=== PATIENT | male | born 2000 | race American Indian/Alaskan Native ===

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

== ENCOUNTER 2020-04-10 20:31 | Emergency (ER) | payer BC, OTHER ==
[2020-04-10 22:04] LABS: Hematocrit 50.6 % (35.5-45.6); Hemoglobin 17.7 gm/dl (11.8-15.2); Mean Corpuscular HGB Conc 35 % (32-34); Mean Corpuscular Volume 84 fl (84-94); Platelet Count 203 K/mm3 (140-440); Red Blood Count 6.02 M/mm3 (3.65-5.03); Red Cell Distribution Width 13.9 % (13.2-15.2)
[2020-04-10 22:11] LABS: Basophils % (Auto) 0.3 % (0.0-1.8); Eosinophils # (Auto) 0.2 K/mm3 (0.0-0.4); Lymphocytes # (Auto) 0.7 K/mm3 (1.2-5.4); Lymphocytes % (Auto) 5.7 % (13.4-35.0); Monocytes # (Auto) 1.1 K/mm3 (0.0-0.8); Monocytes % (Auto) 9.6 % (0.0-7.3)
[2020-04-10 22:25] LABS: Alanine Aminotransferase 13 units/L (7-56); BUN/Creatinine Ratio 12; Blood Urea Nitrogen 12 mg/dL (9-20); Calcium 10.6 mg/dL (8.4-10.2); Hemolysis Index 5
--- NOTE | 2020-04-10 22:31 | XRay Report ---
CHEST 2 VIEWS INDICATION: MAIN. Acute generalized chest pain with nausea and vomiting COMPARISON: None FINDINGS: SUPPORT DEVICES: None. HEART: Within normal limits. LUNGS/PLEURA: No acute air space or interstitial disease. No pneumothorax. ADDITIONAL FINDINGS: None. IMPRESSION: 1. No acute findings. Signer Name: Howard Hay MD Signed: 04/10/2020 10:27 PM Workstation Name: [email or web address]
--- NOTE | 2020-04-10 22:35 | Event Note ---
ED Screening Note ED Screening Note: n/v that began this morning 6-7 episodes no diarrhea LUQ abd pain no fever no sick contacts no recent travel no water different source no recent abx PMHx asthma no allergies to meds non smoker occ ETOH This initial assessment/diagnostic orders/clinical plan/treatment(s) is/are subject to change based on patients health status, clinical progression and re- assessment by fellow clinical providers in the ED. Further treatment and workup at subsequent clinical providers discretion. Patient/guardian urged not to elope from the ED as their condition may be serious if not clinically assessed and managed. Initial orders include: labs
[2020-04-11 00:41] LABS: Bilirubin,Urine NEG (Negative); Blood,Urine NEG (Negative); Color,Urine Yellow (Yellow); Mucus,Urine FEW /HPF; RBC,Urine < 1.0 /HPF (0.0-6.0)
[2020-04-11] MEDS ORDERED: ONDANSETRON 4 MG/2 ML INJ IV ONE (01:25)
[2020-04-11] MEDS ORDERED: MORPHINE 4 MG/1 ML INJ IV ONE (01:25)
[2020-04-11] MEDS ORDERED: SODIUM CHLORIDE 0.9% 1000 ML 1,000 ML IV ONE (01:25)
[2020-04-11] MEDS ORDERED: FAMOTIDINE 20 MG/2 ML INJ IV ONE (01:25)
--- NOTE | 2020-04-11 02:19 | Cat Scan Report ---
CT ABDOMEN AND PELVIS WITH CONTRAST HISTORY: Patient complains of abdominal pain with nausea and vomiting. Omnipaque 300 / 100ml's was us ed for this exam.. COMPARISON: None. TECHNIQUE: CT images of the abdomen and pelvis were obtained following administration of intravenous contrast. All CT scans at this location are performed using CT dose reduction for ALARA by means of automated exposure control. CONTRAST: 100 ml of intravenous contrast administered. FINDINGS: Lungs/bones: The lung bases are clear. There is no acute osseous abnormality. Abdomen/pelvis: The liver, gallbladder, spleen, pancreas, adrenals, left kidney, and proximal GI tra ct appear unremarkable. The right kidney is pelvic in location with no acute abnormality identified. Urinary bladder and prostate are normal with no pelvic free fluid or acute colonic abnormality. Moder ate colonic stool burden may be seen with constipation. The appendix is retrocecal and normal in appe arance. IMPRESSION: 1. No acute abnormality identified. 2. Incidental pelvic right kidney. Signer Name: Howard Hay MD Signed: 04/11/2020 2:14 AM Workstation Name: [id number]
--- NOTE | 2020-04-11 03:02 | Emergency Department Report ---
ED Abdominal Pain HPI - General Chief Complaint: Nausea/Vomiting/Diarrhea Stated Complaint: VOMITING Time Seen by Provider: 04/10/20 22:34 Source: patient Mode of arrival: Ambulatory Limitations: No Limitations - History of Present Illness Initial Comments: This is a 19-year-old male nontoxic, well nourished in appearance, no acute signs of distress presents to the ED with c/o of nausea and vomiting and abdominal pain several days. Patient describes vomiting as food content and yellow gastric acid. Patient describes abdominal pain as cramping and aching with level of 8/10 left upper abdominal area. Patient denies chest pain, short of breath, fever, hemoptysis, blood in stool, chills, headache, stiff neck, numbness or tingling. Patient denies any diarrhea or constipation. Denies any blood in stool. Patient denies any recent travels. Patient denies any allergies or significant PMH. MD Complaint: abdominal pain -: days(s) Location: LUQ Radiation: none Migration to: no migration Severity: mild Severity scale (0 -10): 8 Quality: cramping, aching Consistency: constant Improves With: nothing Worsens With: nothing Associated Symptoms: nausea, vomiting. denies: diarrhea, fever, chills, constipation, dysuria, hematemesis, hematochezia, melena, hematuria, anorexia, syncope - Related Data Previous Rx's Medication Instructions Recorded Last Taken Type Albuterol Mdi (or & Nicu Only) 2 puff IH QID PRN #1 inhalation 04/12/15 Unknown Rx [ProAir HFA Inhaler] Albuterol Sulfate [Albuterol 0.63% 0.63 mg IH TID PRN #1 box 04/12/15 Unknown Rx NEBS] Fluticasone/Salmeterol [Advair 1 puff IH BID #1 disk.w.dev 04/12/15 Unknown Rx Diskus 100-50 mcg] Prednisone [predniSONE (Izzy) ER 40 mg PO QDAY #5 tablet. 04/12/15 Unknown Rx TAB] Ondansetron [Zofran Odt] 4 mg PO Q8HR PRN #12 tab.rapdis 04/11/20 Unknown Rx Allergies Allergy/AdvReac Type Severity Reaction Status Date / Time No Known Allergies Allergy Verified 04/10/20 21:42 ED Review of Systems ROS: Stated complaint: VOMITING Other details as noted in HPI Constitutional: denies: chills, fever Eyes: denies: eye pain, eye discharge, vision change ENT: denies: ear pain, throat pain Respiratory: denies: cough, shortness of breath, wheezing Cardiovascular: denies: chest pain, palpitations Endocrine: no symptoms reported Gastrointestinal: abdominal pain, nausea. denies: diarrhea, constipation, hematemesis, melena, hematochezia Genitourinary: denies: urgency, dysuria Musculoskeletal: denies: back pain, joint swelling, arthralgia Skin: denies: rash, lesions Neurological: denies: headache, weakness, paresthesias Psychiatric: denies: anxiety, depression Hematological/Lymphatic: denies: easy bleeding, easy bruising ED Past Medical Hx - Past Medical History Previous Medical History?: Yes Hx Asthma: Yes - Surgical History Past Surgical History?: No - Social History Smoking Status: Never Smoker Substance Use Type: None - Medications Home Medications: Home Medications Medication Instructions Recorded Confirmed Last Taken Type Albuterol Mdi (or & Nicu Only) 2 puff IH QID PRN #1 inhalation 04/12/15 Unknown Rx [ProAir HFA Inhaler] Albuterol Sulfate [Albuterol 0.63% 0.63 mg IH TID PRN #1 box 04/12/15 Unknown Rx NEBS] Fluticasone/Salmeterol [Advair 1 puff IH BID #1 disk.w.dev 04/12/15 Unknown Rx Diskus 100-50 mcg] Prednisone [predniSONE (Izzy) ER 40 mg PO QDAY #5 tablet.dr 04/12/15 Unknown Rx TAB] Ondansetron [Zofran Odt] 4 mg PO Q8HR PRN #12 tab.rapdis 04/11/20 Unknown Rx ED Physical Exam - General Limitations: No Limitations General appearance: alert, in no apparent distress - Head Head exam: Present: atraumatic, normocephalic - Eye Eye exam: Present: normal appearance - Neck Neck exam: Present: normal inspection, full ROM. Absent: tenderness, meningismus, lymphadenopathy - Respiratory Respiratory exam: Present: normal lung sounds bilaterally. Absent: respiratory distress, wheezes, rales, rhonchi, stridor, chest wall tenderness, accessory muscle use, decreased breath sounds, prolonged expiratory - Cardiovascular Cardiovascular Exam: Present: regular rate, normal rhythm, normal heart sounds. Absent: irregular rhythm, systolic murmur, diastolic murmur, rubs, gallop - GI/Abdominal GI/Abdominal exam: Present: soft, tenderness (upper abdomen), normal bowel sounds. Absent: distended, guarding, rebound, rigid, diminished bowel sounds - Rectal Rectal exam: Present: deferred - Extremities Exam Extremities exam: Present: normal inspection, full ROM - Back Exam Back exam: Present: normal inspection, full ROM. Absent: tenderness, CVA tenderness (R), CVA tenderness (L), muscle spasm, paraspinal tenderness, vertebral tenderness, rash noted - Neurological Exam Neurological exam: Present: alert, oriented X3, normal gait - Psychiatric Psychiatric exam: Present: normal affect, normal mood - Skin Skin exam: Present: warm, dry, intact, normal color. Absent: rash ED Course Vital Signs 04/10/20 21:41 Temperature 99.5 F Pulse Rate 104 H Respiratory 18 Rate Blood Pressure 120/75 O2 Sat by Pulse 100 Oximetry - Reevaluation(s) Reevaluation #1: 04/11/20 03:01 Patient is speaking in full sentences with no signs of distress noted. ED Medical Decision Making - Lab Data Result diagrams: 04/10/20 21:53 04/10/20 21:53 Lab Results 04/10/20 04/10/20 04/11/20 Range/Units 21:53 21:53 Unknown WBC 11.3 H (4.5-11.0) K/mm3 RBC 6.02 H (3.65-5.03) M/mm3 Hgb 17.7 H (11.8-15.2) gm/dl Hct 50.6 H (35.5-45.6) % MCV 84 (84-94) fl MCH 29 (28-32) pg MCHC 35 H (32-34) % RDW 13.9 (13.2-15.2) % Plt Count 203 (140-440) K/mm3 Lymph % (Auto) 5.7 L (13.4-35.0) % Rice % (Auto) 9.6 H (0.0-7.3) % Eos % (Auto) 2.0 (0.0-4.3) % Baso % (Auto) 0.3 (0.0-1.8) % Lymph # (Auto) 0.7 L (1.2-5.4) K/mm3 Rice # (Auto) 1.1 H (0.0-0.8) K/mm3 Eos # (Auto) 0.2 (0.0-0.4) K/mm3 Baso # (Auto) 0.0 (0.0-0.1) K/mm3 Add Manual Diff Complete Seg Neutrophils % 82.4 H (40.0-70.0) % Seg Neutrophils # 9.8 H (1.8-7.7) K/mm3 Sodium 140 (137-145) mmol/L Potassium 4.9 (3.6-5.0) mmol/L Chloride 100.4 (98-107) mmol/L Carbon Dioxide 26 (22-30) mmol/L Anion Gap 19 mmol/L BUN 12 (9-20) mg/dL Creatinine 1.0 (0.8-1.3) mg/dL Estimated GFR > 60 ml/min BUN/Creatinine Ratio 12 % Glucose 93 (75-100) mg/dL Calcium 10.6 H (8.4-10.2) mg/dL Total Bilirubin 3.00 H (0.1-1.2) mg/dL AST 21 (5-40) units/L ALT 13 (7-56) units/L Alkaline Phosphatase 72 (35-129) units/L Total Protein 7.8 (6.3-8.2) g/dL Albumin 5.0 (3.9-5) g/dL Albumin/Globulin Ratio 1.8 % Lipase 21 (13-60) units/L Urine Color Yellow (Yellow) Urine Turbidity Clear (Clear) Urine pH 7.0 (5.0-7.0) Ur Specific Anderson 1.026 (1.003-1.030) Urine Protein 30 mg/dl (Negative) mg/dL Urine Glucose (UA) Neg (Negative) mg/dL Urine Ketones Neg (Negative) mg/dL Urine Blood Neg (Negative) Urine Nitrite Neg (Negative) Urine Bilirubin Neg (Negative) Urine Urobilinogen 4.0 (<2.0) mg/dL Ur Leukocyte Esterase Neg (Negative) Urine WBC (Auto) 1.0 (0.0-6.0) /HPF Urine RBC (Auto) < 1.0 (0.0-6.0) /HPF Urine Mucus Few /HPF - EKG Data 04/11/20 03:03 EKG done in triage. Normal sinus rhythm at 93 bpm. Reviewed and signed by . - Radiology Data Referring Physician: AVA JOVEL Patient Name: NEMESIO BROWN Date of : 2000 Sex: Male Report Date: 2020-04-11 Report Status: Finalized [facility] [address] [place] [address] Cat Scan Report Signed Patient: NEMESIO BROWN MR#: [id number] : 2000 Acct:[id number] Age/Sex: 19 / M ADM Date: 04/10/20 Loc: ED Attending Dr: Ordering Physician: AVA JOVEL NP Date of Service: 04/11/20 Procedure(s): CT abdomen pelvis w con Accession Number(s): [id number] cc: AVA JOVEL NP CT ABDOMEN AND PELVIS WITH CONTRAST HISTORY: Patient complains of abdominal pain with nausea and vomiting. Omnipaque 300 / 100ml's was used for this exam.. COMPARISON: None. TECHNIQUE: CT images of the abdomen and pelvis were obtained following administration of intravenous contrast. All CT scans at this location are performed using CT dose reduction for ALARA by means of automated exposure control. CONTRAST: 100 ml of intravenous contrast administered. FINDINGS: Lungs/bones: The lung bases are clear. There is no acute osseous abnormality. Abdomen/pelvis: The liver, gallbladder, spleen, pancreas, adrenals, left kidney, and proximal GI tract appear unremarkable. The right kidney is pelvic in location with no acute abnormality identified. Urinary bladder and prostate are normal with no pelvic free fluid or acute colonic abnormality. Moderate colonic stool burden may be seen with constipation. The appendix is retrocecal and normal in appearance. IMPRESSION: 1. No acute abnormality identified. 2. Incidental pelvic right kidney. Signer Name: Howard Hay MD Signed: 04/11/2020 2:14 AM Workstation Name: [id number] Transcribed By: MIRIAN Dictated By: Howard Hay MD Electronically Authenticated By: Howard Hay MD Signed Date/Time: 04/11/20213 DD/ 2 TD/TT: Referring Physician: ED DOC Patient Name: NEMESIO BROWN Date of : 2000 Sex: Male Report Date: 2020-04-10 Report Status: Finalized [facility] [address] [place] [address] XRay Report Signed Patient: NEMESIO BROWN MR#: [id number] : 2000 Acct:[id number] Age/Sex: 19 / M ADM Date: 04/10/20 Loc: ED Attending Dr: Ordering Physician: PALMA SPEARS MD Date of Service: 04/10/20 Procedure(s): XR chest routine 2V Accession Number(s): [id number] cc: PALMA SPEARS MD Fluoro Time In Minutes: CHEST 2 VIEWS INDICATION: MAIN. Acute generalized chest pain with nausea and vomiting COMPARISON: None FINDINGS: SUPPORT DEVICES: None. HEART: Within normal limits. LUNGS/PLEURA: No acute air space or interstitial disease. No pneumothorax. ADDITIONAL FINDINGS: None. IMPRESSION: 1. No acute findings. Signer Name: Howard Hay MD Signed: 04/10/2020 10:27 PM Workstation Name: [id number] Transcribed By: JW Dictated By: Howard aHy MD Electronically Authenticated By: Howard Hay MD Signed Date/Time: 04/10/202226 DD/ 25 TD/TT: - Medical Decision Making This is a 19-year-old male that presents with abdominal pain. Patient is stable and was examined by me. Negative signs of symptoms of appendicitis. Labs obtained. UA obtained. CT of abdomen obtained and dictated by the radiologist. Patient is notified of the report with no questions noted by the patient. Vital signs are stable prior to discharge. Patient received medical treatment in the ED which patient stated symptoms has resovled and subsided. Was instructed note to operate any machinery due to possible drowsiness and stated someone will driv e the patient home. A by mouth challenge has been obtained and patient tolerated well with no nausea vomiting. Patient was also instructed to Follow-up with a primary care doctor in 3-5 days or if symptoms worsen and continue return to emergency room as soon as possible. At time of discharge, the patient does not seem toxic or ill in appearance. No acute signs of distress noted. Patient agrees to discharge treatment plan of care. No further questions noted by the patient. - Differential Diagnosis SBO, gastritis, appendicitis, cholecystitis Critical care attestation.: If time is entered above; I have spent that time in minutes in the direct care of this critically ill patient, excluding procedure time. ED Disposition Clinical Impression: Abdominal pain Qualifiers: Abdominal location: upper abdomen, unspecified Qualified Code(s): R10.10 - Up per abdominal pain, unspecified Nausea & vomiting Qualifiers: Vomiting type: unspecified Vomiting Intractability: non-intractable Qualified Code(s): R11.2 - Nausea with vomiting, unspecified Disposition: - TO HOME OR SELFCARE Is pt being admited?: No Does the pt Need Aspirin: No Condition: Stable Instructions: Abdominal Pain, Adult, [id number], Nausea and Vomiting, Adult Additional Instructions: Follow-up with a primary care and automatic lathe tender doctor in 3-5 days or if symptoms worsen and continue return to emergency room as soon as possible. Prescriptions: Ondansetron [Zofran Odt] 4 mg PO Q8HR PRN #12 tab.rapdis PRN Reason: Nausea Referrals: PRIMARY CARE, [Primary Care Provider] - 3-5 Days RONA NIXON MD [Staff Physician] - 3-5 Days [facility] [Provider Group] - 3-5 Days Forms: Work/School Release Form(ED) Time of Disposition: 03:05
[2020-04-11 07:27] VITALS: BP 118/69
== END 2020-04-11 07:30 | disposition home or self-care (01) ==
LOC: ED 20:31
DX: R10.12 Left upper quadrant pain (principal); R11.2 Nausea with vomiting, unspecified; J45.909 Unspecified asthma, uncomplicated; Z79.899 Other long term (current) drug therapy
CPT/HCPCS: 36415; 71046; 74177; 80053; 81001; 83690; 85025; 93005; 96361; 96374; 96375; 99284; J2270; J2405; J7030; Q9967